=== PATIENT | male | born 1955 | race Caucasian/White ===

== ENCOUNTER 2016-08-01 01:30 | Inpatient (IN) | payer OTHER, BC ==
[2016-08-01] VITALS (8 sets, daily range): BP systolic 119–182; BP diastolic 77–90; PULSE 68–85; RESP 16–18; TEMP 96.2–98.2; O2SAT 94–100
[~2016-08-01] VITALS: Ht 175.3 cm; Wt 69.1 kg
[2016-08-01] MEDS ORDERED: OXYC20TA17 PO (01:33)
[2016-08-01] MEDS ORDERED: HYDROmorphone HCL PF 1 MG/ML VIAL IVS ONE (02:15)
[2016-08-01] MEDS ORDERED: ONDANSETRON HCL 4 MG/2 ML VIAL IVP ONE (02:15)
[2016-08-01] MEDS ORDERED: SODIUM CHLOR 0.9% 1000 ML INJ 1,000 ML IV SCH (02:15)
--- NOTE | 2016-08-01 02:21 | PD ---
HPI Chief Complaint: Abdominal Pain Time Seen by Provider: 02:07 Travel History International Travel<30 days: No Contact w/Intl Traveler<30days: No Traveled to known affect area: No History of Present Illness HPI 61-year-old male complains of abdominal pain. Patient states that the pain started yesterday and got worse this evening. Patient states the pain is severe grabbing pain and sharp pain localized to left upper quadrant and the abdomen. Patient denies any pain radiation. Patient denies any nausea vomiting diarrhea. Patient denies any dysuria or frequency. Patient denies any fever chills. Patient has history of peritoneal mesothelioma. Patient status post splenectomy, cholecystectomy, appendectomy. Patient has been seen by oncologist. On a scale of 1-10 the pain is a 10. Patient has an IM injection of Neulastin 2 days ago. PFSH Past Medical History Cancer: Yes (mesothelioma) Influenza Vaccination: Yes Past Surgical History Abdominal Surgery: Yes (spleenectomy) Appendectomy: Yes Cholecystectomy: Yes Social History Alcohol Use: Yes (Social) Tobacco Use: No Substance Use: Yes (marijuana) Allergies-Medications (Allergen,Severity, Reaction): Coded Allergies: Penicillin (Verified Allergy, Unknown, 08/01/16) Reported Meds & Prescriptions Reported Meds & Active Scripts Active Reported Oxycontin (Oxycodone HCl) 20 Mg Tab 20 Mg PO DAILY Review of Systems General / Constitutional: No: Fever Eyes: No: Visual changes HENT: No: Headaches Cardiovascular: No: Chest Pain or Discomfort Respiratory: No: Shortness of Breath Gastrointestinal: Positive: Abdominal Pain Genitourinary: No: Dysuria Musculoskeletal: No: Pain Skin: No Rash Neurologic: No: Weakness Psychiatric: No: Depression Endocrine: No: Polydipsia Hematologic/Lymphatic: No: Easy Bruising Physical Exam Narrative GENERAL: Well-nourished, well-developed patient. SKIN: Focused skin assessment warm/dry. HEAD: Normocephalic. EYES: No scleral icterus. No injection or drainage. NECK: Supple, trachea midline. No JVD or lymphadenopathy. CARDIOVASCULAR: Regular rate and rhythm without murmurs, gallops, or rubs. RESPIRATORY: Breath sounds equal bilaterally. No accessory muscle use. GASTROINTESTINAL: Abdomen soft, nondistended. Patient has moderate tenderness on palpation left upper quadrant of the abdomen. No rebound tenderness. No mass. Patient has as reducible moderate size periumbilical hernia. MUSCULOSKELETAL: No cyanosis, or edema. BACK: Nontender without obvious deformity. No CVA tenderness. Neurologic exam normal. Data Data Last Documented VS Vital Signs Date Time Temp Pulse Resp B/P Pulse Ox O2 Delivery O2 Flow Rate FiO2 08/01/16 03:34 85 18 150/83 98 Room Air 08/01/16 01:33 96.2 Orders Complete Blood Count With Diff (08/01/16 02:15) Comprehensive Metabolic Panel (08/01/16 02:15) Lipase (08/01/16 02:15) Prothrombin Time / Inr (Pt) (08/01/16 02:15) Act Partial Throm Time (Ptt) (08/01/16 02:15) Urinalysis - C+S If Indicated (08/01/16 02:15) Ct Abd/Pel W Iv Contrast(Rout) (08/01/16 02:15) Iv Access Insert/Monitor (08/01/16 02:15) Ecg Monitoring (08/01/16 02:15) Oximetry (08/01/16 02:15) Ondansetron Inj (Zofran Inj) (08/01/16 02:15) Sodium Chlor 0.9% 1000 Ml Inj (Ns 1000 M (08/01/16 02:15) Hydromorphone Pf Inj (Dilaudid Pf Inj) (08/01/16 02:15) Iohexol 350 Inj (Omnipaque 350 Inj) (08/01/16 03:25) Hydromorphone Pf Inj (Dilaudid Pf Inj) (08/01/16 04:15) Labs Laboratory Tests Test 08/01/16 02:15 White Blood Count 53.0 TH/MM3 Red Blood Count 3.60 MIL/MM3 Hemoglobin 11.6 GM/DL Hematocrit 35.3 % Mean Corpuscular Volume 98.0 FL Mean Corpuscular Hemoglobin 32.2 PG Mean Corpuscular Hemoglobin 32.9 % Concent Red Cell Distribution Width 17.5 % Platelet Count 423 TH/MM3 Mean Platelet Volume 10.0 FL Neutrophils (%) (Auto) 95.1 % Lymphocytes (%) (Auto) 3.0 % Monocytes (%) (Auto) 1.6 % Eosinophils (%) (Auto) 0.1 % Basophils (%) (Auto) 0.2 % Neutrophils # (Auto) 50.5 TH/MM3 Lymphocytes # (Auto) 1.6 TH/MM3 Monocytes # (Auto) 0.9 TH/MM3 Eosinophils # (Auto) 0.0 TH/MM3 Basophils # (Auto) 0.1 TH/MM3 CBC Comment AUTO DIFF Prothrombin Time 10.7 SEC Prothromb Time International 1.0 RATIO Ratio Activated Partial 24.5 SEC Thromboplast Time Urine Color YELLOW Urine Turbidity HAZY Urine pH 7.5 Urine Specific [place] 1.016 Urine Protein NEG mg/dL Urine Glucose (UA) NEG mg/dL Urine Ketones 10 mg/dL Urine Occult Blood NEG Urine Nitrite NEG Urine Bilirubin NEG Urine Urobilinogen LESS THAN 2.0 MG/DL Urine Leukocyte Esterase NEG Urine WBC LESS THAN 1 /hpf Urine Squamous Epithelial <1 /hpf Cells Urine Amorphous Sediment OCC Microscopic Urinalysis Comment CULT NOT INDICATED Sodium Level 139 MEQ/L Potassium Level 4.1 MEQ/L Chloride Level 100 MEQ/L Carbon Dioxide Level 26.0 MEQ/L Anion Gap 13 MEQ/L Blood Urea Nitrogen 38 MG/DL Creatinine 1.42 MG/DL Estimat Glomerular Filtration 51 ML/MIN Rate Random Glucose 111 MG/DL Calcium Level 9.6 MG/DL Total Bilirubin 0.4 MG/DL Aspartate Amino Transf 36 U/L (AST/SGOT) Alanine Aminotransferase 45 U/L (ALT/SGPT) Alkaline Phosphatase 182 U/L Total Protein 7.2 GM/DL Albumin 3.6 GM/DL Lipase 47 U/L [facility] Medical Decision Making Medical Screen Exam Complete: Yes Emergency Medical Condition: Yes Interpretation(s) Last Impressions Abdomen/Pelvis CT 08/01/16 0215 Signed Impressions: Service Date/Time: Monday, August 01, 2016 03:21 - CONCLUSION: Multiple distended loops of small bowel characteristic of a distal small bowel obstruction. There is a small left paraumbilical hernia which contains a loop of nondilated small bowel. This may be the etiology of the small bowel obstruction. Esteban Moore MD 3:53 AM. CBC WBC 53,000. Hemoglobin 11.6 hematocrit 35.3. 95 neutrophil. CMP with BUN 38. Creatinine 1.42. Alkaline phosphatase 182. UA is negative. Differential Diagnosis Differential diagnosis including tumor pain, gastritis, PUD, pancreatitis, colitis, nephrolithiasis, pyelonephritis, musculoskeletal. Narrative Course 61-year-old male with severe abdominal pain, left upper quadrant abdominal pain , with history of peritoneal mesothelioma. Normal saline solution 1 25 cc an hour. Dilaudid 1 mg IV. Zofran 4 mg IV. Repeated Dilaudid 1 mg IV. Protonix 40 mg IV. Diagnosis Primary Impression: Small bowel obstruction Additional Impression: Renal insufficiency Anthony Benson MD August 01, 2016 02:20
[2016-08-01 03:00] LABS: ALT (GPT) 45 U/L (12-78); ANION GAP 13 MEQ/L (5-15); AST (GOT) 36 U/L (15-37); BLOOD UREA NITROGEN 38 MG/DL (7-18); CHLORIDE 100 MEQ/L (98-107); GLOMERULAR FILTRATION RATE 51 ML/MIN (>89); POTASSIUM 4.1 MEQ/L (3.5-5.1); SODIUM (NA) 139 MEQ/L (136-145)
[2016-08-01 03:01] LABS: ALKALINE PHOSPHATASE 182 U/L (45-117); TOTAL BILIRUBIN ADULT 0.4 MG/DL (0.2-1.0)
[2016-08-01 03:02] LABS: AUTOMATED NEUTROPHIL # 50.5 TH/MM3 (1.8-7.7); BASOPHIL # 0.1 TH/MM3 (0-0.2); BASOPHIL % 0.2 % (0.0-2.0); BLOOD, URINE NEG (NEG); COMMENT (UR) CULT NOT INDICATED; CULTURE IF INDICATED CULT NOT INDICATED; EOSINOPHIL % 0.1 % (0.0-4.0); GLUCOSE,URINE NEG (NEG); HEMATOCRIT 35.3 % (39.0-51.0); KETONE, URINE 10 mg/dL (NEG); LYMPHOCYTE # 1.6 TH/MM3 (1.0-4.8); MEAN CORPUSCULAR HEMOGLOBIN 32.2 PG (27.0-34.0); MEAN CORPUSCULAR HGB CONC 32.9 % (32.0-36.0); MONO % 1.6 % (0.0-8.0); NEUT % 95.1 % (16.0-70.0); NITRITE,URINE NEG (NEG); PH, URINE 7.5 (5.0-8.5); PLATELET COUNT 423 TH/MM3 (150-450); RED CELL DISTRIBUTION WIDTH 17.5 % (11.6-17.2); SQUAMOUS EPITHELIAL CELL URINE <1 /hpf (0-5); URINE COLOR YELLOW (YELLW/STRAW)
[2016-08-01 03:12] LABS: APTT (PATIENT) 24.5 SEC (24.3-30.1); PROTHROMBIN TIME - PATIENT 10.7 SEC (9.8-11.6)
[2016-08-01] MEDS ORDERED: IOHEXOL 350 MG/ML 10 ML VIAL (for RAD DIAG) IV ONE (03:25)
--- NOTE | 2016-08-01 03:43 | RADRPT ---
EXAM DATE/TIME: 08/01/2016 03:21 [place] COMPARISON: No previous studies available for comparison. INDICATIONS : Left upper quadrant abdomen pain. IV CONTRAST: 100 cc Omnipaque 350 (iohexol) IV ORAL CONTRAST: No oral contrast ingested. RADIATION DOSE: 6.64 CTDIvol (mGy) MEDICAL HISTORY : Mesothelioma. SURGICAL HISTORY : Appendectomy. Cholecystectomy.Splenectomy. ENCOUNTER: Initial ACUITY: 1 day PAIN SCALE: 10/10 LOCATION: Left upper quadrant abdomen TECHNIQUE: Volumetric scanning of the abdomen and pelvis was performed. Using automated exposure control and ad justment of the mA and/or kV according to patient size, radiation dose was kept as low as reasonably achievable to obtain optimal diagnostic quality images. FINDINGS: LOWER LUNGS: The visualized lower lungs are clear. LIVER: Homogeneous density without lesion. There is no dilation of the biliary tree. No calcified gallston es. SPLEEN: Normal size without lesion. PANCREAS: Within normal limits. KIDNEYS: Normal in size and shape. There is no mass, stone or hydronephrosis. ADRENAL GLANDS: Within normal limits. VASCULAR: There is no aortic aneurysm. BOWEL/MESENTERY: The stomach is moderately distended. There are multiple distended loops of small bowel. There appears to be a transition zone in the distal small bowel. The terminal ileum is nondilated. This indicates a distal small bowel obstruction. The colon is nondilated. There is stool in the colon. No free air. No free fluid. ABDOMINAL WALL: Small left paraumbilical hernia containing a loop of small bowel. This may be the site of obstruction . RETROPERITONEUM: There is no lymphadenopathy. BLADDER: No wall thickening or mass. REPRODUCTIVE: Within normal limits. INGUINAL: There is no lymphadenopathy or hernia. MUSCULOSKELETAL: Within normal limits for patient age. CONCLUSION: Multiple distended loops of small bowel characteristic of a distal small bowel obstruction. There is a small left paraumbilical hernia which contains a loop of nondilated small bowel. This may be the et iology of the small bowel obstruction. Esteban Moore MD on August 01, 2016 at 3:33 Board Certified Radiologist. This report was verified electronically.
[2016-08-01 03:47] LABS: HEMO FLAGS AUTO DIFF
[2016-08-01] MEDS ORDERED: PANTOPRAZOLE SODIUM 40 MG VIAL IV PUSH ONE (04:15)
[2016-08-01] MEDS ORDERED: HYDROmorphone HCL PF 1 MG/ML VIAL IV PUSH ONE (04:15)
[2016-08-01] MEDS ORDERED: SODIUM CHLORIDE 0.9% FLUSH 10 ML FLUSH IV FLUSH PRN (04:30)
[2016-08-01] MEDS ORDERED: ONDANSETRON HCL 4 MG/2 ML VIAL IVP PRN (04:30)
[2016-08-01] MEDS ORDERED: MORPHINE SULFATE 4 MG/ML INJ IV PRN ×2 (04:30)
[2016-08-01] MEDS ORDERED: ACETAMINOPHEN 1000 MG/100 ML VIAL IV PRN (04:30)
[2016-08-01] MEDS ORDERED: BISACODYL 10 MG SUPP RECTAL PRN (04:30)
[2016-08-01] MEDS: SODIUM CHLOR 0.9% 1000 ML INJ 1,000 ML IV SCH ×2 (04:37→17:34)
[2016-08-01] MEDS ORDERED: HYDROmorphone HCL PF 1 MG/ML VIAL IV PUSH PRN (04:45)
[2016-08-01] MEDS: metroNIDAZOLE 500 MG INJ 100 ML IV SCH ×3 (04:50→21:47)
--- NOTE | 2016-08-01 04:58 | HHI.HP ---
[facility], Admission Diagnosis small bowel obstruction. Renal insufficiency. Diagnoses: (1) Peritoneal mesothelioma Diagnosis: Principal (2) SBO (small bowel obstruction) Diagnosis: Principal (3) Leukocytosis Diagnosis: Principal (4) Renal insufficiency Diagnosis: Principal Travel History International Travel<30 Days: No Contact w/Intl Traveler <30 Da: No Traveled to Known Affected Are: No History of Present Illness This is a 61-year-old male with a PMH of Peritoneal Mesothelioma on Chemotherapy and Multiple Abdominal Surgeries who presented to the ER with complaints of severe LLQ pain starting earlier this evening w/ associated nausea , no vomiting. Following w/ Dr. Petit, s/p Chemotherapy and Neulasta 2 days ago w/ no complications. Today w/ acute onset of LLQ pain. Pt reports normal BM yesterday, but unable to pass gas x2 days. On arrival, BP 182/90, HR 75, O2 sat 100% on RA, Afebrile. WBC 53, neutrophils 95. Creatinine 1.42, no previous labs for comparison. UA negative. CT Abd/Pelvis w/ multiple distended loops of small bowel characteristic of distal small bowel obstruction , small left paraumbilical hernia with loops of nondilated small bowel, possibly etiology of small bowel obstruction. On exam however, hernia is easily reducible with no evidence of incarceration or strangulation. Review of Systems Except as stated in HPI: all other systems reviewed are Neg ROS: 14 point review of systems otherwise negative. Past Family Social History Past Medical History PMH: Peritoneal Mesothelioma on Chemotherapy and Multiple Abdominal Surgeries Past Surgical History PAST SURGICAL HISTORY: Appendectomy, Cholecystectomy, Splenectomy, Tumor Resection Allergies: Coded Allergies: Penicillin (Verified Allergy, Unknown, 08/01/16) Family History PAST FAMILY HISTORY: Reviewed. No h/o DM or CAD Social History PAST SOCIAL HISTORY: Occasional alcohol. Negative for tobacco. Positive for Marijuana. Physical Exam Vital Signs Vital Signs Date Time Temp Pulse Resp B/P Pulse Ox O2 Delivery O2 Flow Rate FiO2 08/01/16 03:34 85 18 150/83 98 Room Air 08/01/16 01:33 96.2 75 18 182/90 100 Physical Exam PE: GENERAL: Very pleasant middle-aged male in no acute distress. at bedside HEENT: PERRLA, EOMI. No scleral icterus or conjunctival pallor. No lid lag or facial droop. CARDIOVASCULAR: Regular rate and rhythm. No obvious murmurs to auscultation. No chest tenderness to palpation. RESPIRATORY: No obvious rhonchi or wheezing. Clear to auscultation. Breath sounds equal bilaterally. GASTROINTESTINAL: Abdomen soft, LLQ tenderness to palpation, nondistended. BS normal. +periumbilical hernia, easily reducible. MUSCULOSKELETAL: Extremities without clubbing, cyanosis, or edema. No obvious deformities. NEUROLOGICAL: Awake, alert and oriented x4. No focal neurologic deficits. Moving both upper and lower extremities spontaneously. Laboratory Laboratory Tests Test 08/01/16 02:15 White Blood Count 53.0 Red Blood Count 3.60 Hemoglobin 11.6 Hematocrit 35.3 Mean Corpuscular Volume 98.0 Mean Corpuscular Hemoglobin 32.2 Mean Corpuscular Hemoglobin 32.9 Concent Red Cell Distribution Width 17.5 Platelet Count 423 Mean Platelet Volume 10.0 Neutrophils (%) (Auto) 95.1 Lymphocytes (%) (Auto) 3.0 Monocytes (%) (Auto) 1.6 Eosinophils (%) (Auto) 0.1 Basophils (%) (Auto) 0.2 Neutrophils # (Auto) 50.5 Lymphocytes # (Auto) 1.6 Monocytes # (Auto) 0.9 Eosinophils # (Auto) 0.0 Basophils # (Auto) 0.1 CBC Comment AUTO DIFF Prothrombin Time 10.7 Prothromb Time International 1.0 Ratio Activated Partial 24.5 Thromboplast Time Urine Color YELLOW Urine Turbidity HAZY Urine pH 7.5 Urine Specific [place] 1.016 Urine Protein NEG Urine Glucose (UA) NEG Urine Ketones 10 Urine Occult Blood NEG Urine Nitrite NEG Urine Bilirubin NEG Urine Urobilinogen LESS THAN 2.0 Urine Leukocyte Esterase NEG Urine WBC LESS THAN 1 Urine Squamous Epithelial <1 Cells Urine Amorphous Sediment OCC Microscopic Urinalysis Comment CULT NOT INDICATED Sodium Level 139 Potassium Level 4.1 Chloride Level 100 Carbon Dioxide Level 26.0 Anion Gap 13 Blood Urea Nitrogen 38 Creatinine 1.42 Estimat Glomerular Filtration 51 Rate Random Glucose 111 Calcium Level 9.6 Total Bilirubin 0.4 Aspartate Amino Transf 36 (AST/SGOT) Alanine Aminotransferase 45 (ALT/SGPT) Alkaline Phosphatase 182 Total Protein 7.2 Albumin 3.6 Lipase 47 Result Diagram: 08/01/1621408/01/16214 Assessment and Plan Problem List: (1) Peritoneal mesothelioma ICD Code: C45.1 Status: Acute (2) SBO (small bowel obstruction) ICD Code: K56.69 Status: Acute (3) Renal insufficiency ICD Code: N28.9 Status: Acute (4) Leukocytosis ICD Code: D72.829 Status: Acute Assessment and Plan A/P: 1. Peritoneal Mesothelioma: currently on Chemo, following w/ Dr. Petit, recent PET Scan 06/05/16 w/ decreased tumor burden per . Plan to continue w / treatment as scheduled. S/p Neulasta 2 days ago. 2. SBO: c/o LLQ pain, minimal BM, no gas. Likely secondary to multiple abdominal surgeries. CT Abd/Pelvis w/ multiple distended loops of small bowel characteristic of distal small bowel obstruction, small left paraumbilical hernia with loops of nondilated small bowel, possibly etiology of small bowel obstruction, images reviewed by me. On exam however hernia is easily reducible with no signs of obstruction. Keep NPO, IVF, analgesics/antiemetics, NGT if needed, Consult Gen Sx for further evaluation. 3. Leukocytosis: WBC 53.0, s/p Neulasta 2 days ago which may be contributing however leukocytosis higher than expected, will start on empiric treatment w/ Cipro/Flagyl for superimposed intra-abdominal infection. Repeat labs in am. 4. Renal Insufficiency: Creatinine 1.42, no previous labs for comparison. U/ a negative, IVF, repeat labs in am. 5. DVT Prophylaxis: SCD/Teds. 6. Social work for d/c planning as needed. 7. Case discussed w/ ER physician at length. Physician Certification 2 Midnight Certification Type: Admission for Inpatient Services Order for Inpatient Services The services are ordered in accordance with Medicare regulations or non- Medicare payer requirements, as applicable. In the case of services not specified as inpatient-only, they are appropriately provided as inpatient services in accordance with the 2-midnight benchmark. Estimated LOS (days): 2 days is the estimated time the patient will need to remain in the hospital, assuming treatment plan goals are met and no additional complications. Post-Hospital Plan: Not yet determined Mazal,Janeth MD August 01, 2016 04:58
[2016-08-01 04:59] LABS: BANDS 19 % (0-6); DOHLE BODIES PRESENT (NONE SEEN); PLATELET ESTIMATE SMEAR NORMAL (NORMAL); PLATELET MORPHOLOGY NORMAL (NORMAL); POLYS (SEG NEUTROPHILS) 81 % (16-70); SCAN/DIFF FINAL DIFF MANUAL; TOXIC GRANULATION 1+ (NORMAL); WBC DIFF SAMPLE 100
[2016-08-01] MEDS: CIPROFLOXACIN 400 MG PREMIX 200 ML IV SCH ×2 (05:39→17:23)
[2016-08-01] MEDS: SODIUM CHLORIDE 0.9% FLUSH 10 ML FLUSH IV FLUSH SCH ×2 (08:50→21:00)
[2016-08-01] MEDS: HYDROmorphone HCL PF 1 MG/ML VIAL IV PUSH PRN ×3 (08:50→17:24)
--- NOTE | 2016-08-01 11:59 | HHI.PR ---
Addendum To [facility] Progress Not Reason for addendum: Additonal documentation (Monet Marcus) Addendum Remarks Subjective: Follow up abdominal pain and small bowel obstruction. Patient seen and examined. Patient has been out of bed ambulating. Feeling better. Pain improving , currently a 6/10 on pain scale, mostly in the left lower quadrant. Denies any nausea or vomiting. Positive BM yesterday. Objective findings: ABDOMEN: Left upper and left lower quadrant tenderness to palpation. BS hyperactive x 4Q. Reducible hernia in left lower and right lower quadrant. Assessment and Plan: Peritoneal Mesothelioma: Currently on Chemo, following w/ Dr. Petit, recent PET Scan 06/05/16 w/ decreased tumor burden per . Plan to continue w/ treatment as scheduled. S/p Neulasta 2 days ago. Small bowel obstruction: LLQ pain, minimal BM yesterday, no gas. Likely secondary to multiple abdominal surgeries. CT Abd/Pelvis reviewed by me, multiple distended loops of small bowel characteristic of distal small bowel obstruction, small left paraumbilical hernia with loops of nondilated small bowel, possibly etiology of small bowel obstruction. - Keep NPO - Continue IVF - Control pain. Dilaudid IV PRN per pain scale. - Zofran PRN for nausea. - General surgery consulted, appreciate input. Leukocytosis - WBC 53.0, s/p Neulasta 2 days ago which may be contributing however leukocytosis higher than expected - Continue empiric treatment with Cipro 400mg IV Q12h and Flagyl 500 mg IV Q8h for superimposed intra-abdominal infection. - Repeat labs in am. Renal Insufficiency - Creatinine 1.42, no previous labs for comparison. - U/a negative - Continue IVF - Repeat labs in am. DVT Prophylaxis: SCD/Teds. Written by Monet Marcus, acting as scribe for Dr. Juárez on 08/01/16 at 11:58. (Monet Marcus) Monet Marcus August 01, 2016 11:59 Rosalina Juárez MD August 04, 2016 17:43
--- NOTE | 2016-08-01 17:39 | MB ---
cc: KOREY DE DIOS M.D. DATE OF CONSULTATION: 08/01/2016. REASON FOR CONSULTATION: Questionable small bowel obstruction. HISTORY OF PRESENT ILLNESS: This is a pleasant unfortunate 61-year-old gentleman who is actively being treated for diffuse mesothelioma of his abdominal cavity by Dr. Elder Petit getting chemotherapy. He states that sometimes during his chemotherapy he has problems with constipation and difficulty with bowel movements that are real dry and small pellets. He recently was treated with the chemotherapy and he developed some abdominal discomfort and was concerned and came to the emergency room. A CT scan was done showing possible obstruction and he was admitted to the hospital, hydrated and surgery was consulted for opinion of his abdominal discomfort and CT findings. Presently the patient is in the room and feeling fairly comfortable. He passed some gas earlier this afternoon. PAST MEDICAL HISTORY: His past medical history is significant for: 1. Mesothelioma actively being treated. 2. 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 3. He has quite extensive abdominal surgery; the splenectomy, cholecystectomy, appendectomy. 4. He has this abdominal tumor that in three months has shrunk by 50% according to him with the chemotherapy that he is getting. He is a fairly active gentleman. PHYSICAL EXAMINATION: GENERAL: On physical exam, he is lying in bed. NECK: The neck is supple. CHEST: Clear. HEART: Regular rate. ABDOMEN: Fairly soft. He has a healed midline wound from the xiphoid down to the pubis, a scar off to the right and a scar to the left. He has a small incisional hernia with no incarceration. The abdomen is otherwise benign. He has some soreness in the horizontal incision in the left lower quadrant. No hernia is palpated here. EXTREMITIES: He moves all extremities without clubbing, cyanosis or edema. NEUROLOGIC: He is alert, oriented and somewhat frustrated with his medical condition but realistic. LABORATORY DATA: He has a white count of 53,000, hemoglobin and hematocrit of 11 and 35. Chemistry showed a little dehydration with a BUN of 38 and a creatinine of 1.4. Lipase 47. Urinalysis is clear. Coags were normal. IMAGING STUDIES: CT of the abdomen shows some dilated loops of small bowel. ASSESSMENT: A 61-year-old gentleman who is being actively treated for diffuse abdominal mesothelioma by Dr. Elder Petit with chemotherapy with some results according to the patient from his recent PET scan. I suspect he became a little dehydrated and once he was hydrated here, he began passing gas feeling better. At this point, will just get a KUB to confirm his resolution of his probable ileus, constipation. Continue IV fluids for hydration and check electrolytes. Advance his diet. MD NAYLA Cabrera/DOMINICK /5:14 PM /5:28 PM
[2016-08-02] VITALS: BP 121/77; PULSE 71; RESP 16; TEMP 97.4; O2SAT 97
[2016-08-02 04:22] VITALS: BP 129/80; PULSE 63; RESP 17; TEMP 97.2; O2SAT 98
[2016-08-02] MEDS: HYDROmorphone HCL PF 1 MG/ML VIAL IV PUSH PRN (04:58)
[2016-08-02] MEDS: SODIUM CHLOR 0.9% 1000 ML INJ 1,000 ML IV SCH (04:58)
[2016-08-02] MEDS: metroNIDAZOLE 500 MG INJ 100 ML IV SCH (04:58)
[2016-08-02] MEDS: CIPROFLOXACIN 400 MG PREMIX 200 ML IV SCH (06:49)
[2016-08-02 07:08] LABS: AUTOMATED NEUTROPHIL # 22.1 TH/MM3 (1.8-7.7); BASOPHIL # 0.1 TH/MM3 (0-0.2); BASOPHIL % 0.5 % (0.0-2.0); EOSINOPHIL # 0.1 TH/MM3 (0-0.4); EOSINOPHIL % 0.3 % (0.0-4.0); HEMATOCRIT 31.2 % (39.0-51.0); LYMPH % 6.3 % (9.0-44.0); LYMPHOCYTE # 1.6 TH/MM3 (1.0-4.8); MEAN CELL VOLUME 98.3 FL (80.0-100.0); MEAN CORPUSCULAR HGB CONC 32.5 % (32.0-36.0); MONO % 3.7 % (0.0-8.0); NEUT % 89.2 % (16.0-70.0); PLATELET COUNT 399 TH/MM3 (150-450); RED BLOOD COUNT 3.17 MIL/MM3 (4.50-5.90); RED CELL DISTRIBUTION WIDTH 17.6 % (11.6-17.2); WHITE BLOOD COUNT 24.8 TH/MM3 (4.0-11.0)
[2016-08-02 07:24] LABS: HEMO FLAGS AUTO DIFF
[2016-08-02 08:00] VITALS: BP 133/85; PULSE 59; RESP 18; TEMP 97.3; O2SAT 95
[2016-08-02 08:09] LABS: BANDS 11 % (0-6); CORRECTED NUCLEATED RBC 1 /100 WBC (0-0); NEUTROPHIL # MANUAL DIFF 22.1 TH/MM3 (1.8-7.7); POLYS (SEG NEUTROPHILS) 78 % (16-70); WBC DIFF SAMPLE 100
[2016-08-02 08:10] LABS: HOWELL-JOLLY BODIES PRESENT (NONE SEEN)
[2016-08-02 08:11] LABS: DOHLE BODIES PRESENT (NONE SEEN); PLATELET ESTIMATE SMEAR HIGH (NORMAL); PLATELET MORPHOLOGY NORMAL (NORMAL); SCAN/DIFF FINAL DIFF MANUAL
[2016-08-02 08:14] LABS: ALKALINE PHOSPHATASE 118 U/L (45-117); ALT (GPT) 27 U/L (12-78); ANION GAP 8 MEQ/L (5-15); AST (GOT) 18 U/L (15-37); BICARBONATE 25.2 MEQ/L (21.0-32.0); BLOOD UREA NITROGEN 20 MG/DL (7-18); CHLORIDE 106 MEQ/L (98-107); GLOMERULAR FILTRATION RATE 81 ML/MIN (>89); POTASSIUM 4.4 MEQ/L (3.5-5.1); SODIUM (NA) 139 MEQ/L (136-145); TOTAL BILIRUBIN ADULT 0.4 MG/DL (0.2-1.0)
[2016-08-02] MEDS: SODIUM CHLORIDE 0.9% FLUSH 10 ML FLUSH IV FLUSH SCH (08:26)
[2016-08-02 12:00] VITALS: BP 149/70; PULSE 67; RESP 18; TEMP 97.3; O2SAT 97
--- NOTE | 2016-08-02 12:57 | HHI.PR ---
Subjective Subjective Notes no new c/o, tolerating PO, wants to go home Objective Vitals/I&O Vital Signs Date Time Temp Pulse Resp B/P Pulse Ox O2 Delivery O2 Flow Rate FiO2 08/02/16 08:00 97.3 59 18 133/85 95 08/01/16 03:34 Room Air Labs Laboratory Tests Test 08/02/16 06:12 White Blood Count 24.8 Red Blood Count 3.17 Hemoglobin 10.1 Hematocrit 31.2 Mean Corpuscular Volume 98.3 Mean Corpuscular Hemoglobin 32.0 Mean Corpuscular Hemoglobin 32.5 Concent Red Cell Distribution Width 17.6 Platelet Count 399 Mean Platelet Volume 9.5 Neutrophils (%) (Auto) 89.2 Lymphocytes (%) (Auto) 6.3 Monocytes (%) (Auto) 3.7 Eosinophils (%) (Auto) 0.3 Basophils (%) (Auto) 0.5 Neutrophils # (Auto) 22.1 Lymphocytes # (Auto) 1.6 Monocytes # (Auto) 0.9 Eosinophils # (Auto) 0.1 Basophils # (Auto) 0.1 CBC Comment AUTO DIFF Differential Total Cells 100 Counted Neutrophils % (Manual) 78 Band Neutrophils % 11 Lymphocytes % 7 Monocytes % 4 Neutrophils # (Manual) 22.1 Nucleated Red Blood Cells 1 Differential Comment FINAL DIFF MANUAL Dohle Bodies PRESENT Platelet Estimate HIGH Platelet Morphology Comment NORMAL [place] Neck Bodies PRESENT Acanthocytes Sodium Level 139 Potassium Level 4.4 Chloride Level 106 Carbon Dioxide Level 25.2 Anion Gap 8 Blood Urea Nitrogen 20 Creatinine 0.95 Estimat Glomerular Filtration 81 Rate Random Glucose 86 Calcium Level 8.1 Total Bilirubin 0.4 Aspartate Amino Transf 18 (AST/SGOT) Alanine Aminotransferase 27 (ALT/SGPT) Alkaline Phosphatase 118 Total Protein 5.7 Albumin 2.7 Cardiovascular: Regular Lungs: Clear Abdomen: Non-distended, Non-tender A/P Assessment and Plan 61yo male with PSBO/abdominal pain, multiple hernias symptoms resolved, exam benign, ok for DC Chilo Nix MD August 02, 2016 12:57
[2016-08-02] MEDS ORDERED: NORC5TAB PO (13:08)
[2016-08-02] MEDS ORDERED: PERI8.6T PO (13:08)
--- NOTE | 2016-08-02 13:13 | HHI.PR ---
Subjective Remarks Pt feels well. passing flatus. no nausea or vomiting. discussed w RN, pt has been cleared by gen surg for discharge Objective Vitals Vital Signs Date Time Temp Pulse Resp B/P Pulse Ox O2 Delivery O2 Flow Rate FiO2 08/02/16 08:00 97.3 59 18 133/85 95 08/02/16 04:22 97.2 63 17 129/80 98 08/02/16 00:00 97.4 71 16 121/77 97 08/01/16 20:00 98.1 77 18 131/77 96 08/01/16 16:00 98.2 77 16 137/87 97 I/O 08/01/16 08/01/16 08/01/16 08/02/16 08/02/16 08/02/16 07:00 15:00 23:00 07:00 15:00 23:00 Intake Total 0 ml 0 ml 1600 ml 1380 ml Output Total 350 ml Balance 0 ml 0 ml 1600 ml 1030 ml Intake Oral 0 ml 0 ml 720 ml 480 ml IV Total 880 ml 900 ml Output Urine Total 350 ml # Voids 1 3 2 2 # Bowel Movements 0 0 Result Diagram: 08/02/16 0612 08/02/16 0612 Imaging Last Impressions Abdomen/Pelvis CT 08/01/16 0215 Signed Impressions: Service Date/Time: Monday, August 01, 2016 03:21 - CONCLUSION: Multiple distended loops of small bowel characteristic of a distal small bowel obstruction. There is a small left paraumbilical hernia which contains a loop of nondilated small bowel. This may be the etiology of the small bowel obstruction. Esteban Moore MD Objective Remarks GENERAL: Very pleasant middle-aged male in no acute distress. ambulating down the [place] CARDIOVASCULAR: Regular rate and rhythm. No obvious murmurs to auscultation. RESPIRATORY: No obvious rhonchi or wheezing. Clear to auscultation. Breath sounds equal bilaterally. GASTROINTESTINAL: Abdomen soft,non tender, nondistended. BS normal. + periumbilical hernia, easily reducible. MUSCULOSKELETAL: Extremities without edema. No obvious deformities. 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 Petit, recent PET Scan 06/05/16 w/ decreased tumor burden per . Plan to continue w/ treatment as scheduled. S/p Neulasta 2 days ago which per pt usually keep his WBC in the 25 range and usually goes down on it own. Small bowel obstruction: Likely secondary to multiple abdominal surgeries. CT Abd/Pelvis reviewed by me, multiple distended loops of small bowel characteristic of distal small bowel obstruction, small left paraumbilical hernia with loops of nondilated small bowel. tolerating a diet (which was advanced by sx). he has been cleared from their standpoint for discharge. f/u w them as an outpatient as needed. Leukocytosis - WBC 53.0, s/p Neulasta 2 days ago which may be contributing, today down to 24.8. Per pt WBC can be up to 25 after receiving that medication. pt has an appt w his oncologist on wednesday. Pt to keep appt and repeat CBC then. Renal Insufficiency - Cr back to normal. DVT Prophylaxis: SCD/Teds. Discharge Planning discharge home today f/u w gen surg as needed f/u w oncologist on wednesday cbc on wednesday regular diet activity ad estrella Rosalina Juárez MD August 02, 2016 13:13 Rosalina Juárez MD August 02, 2016 13:13
== END 2016-08-02 15:41 | disposition home or self-care (01) | DRG 389 ==
LOC: NEPC 01:30 → NEDA 04:10 → N06A 04:57
PROVIDERS: ADMIT Hospitalist; ATTEND Hospitalist
DX: K56.60 Unspecified intestinal obstruction (principal); C45.1 Mesothelioma of peritoneum; N28.9 Disorder of kidney and ureter, unspecified; D72.829 Elevated white blood cell count, unspecified; K42.9 Umbilical hernia without obstruction or gangrene; G62.9 Polyneuropathy, unspecified; Z90.81 Acquired absence of spleen; E86.0 Dehydration; K59.00 Constipation, unspecified; Z79.899 Other long term (current) drug therapy
CPT/HCPCS: 74177; 80053; 81001; 83690; 85007; 85027; 85610; 85730; 96361; 96365; 96375; C9113; J0744; J1170; J2405; J7030; Q9967